=== PATIENT | female | born 1945 | race Caucasian/White ===

== ENCOUNTER 2020-02-28 06:39 | Observation (INO) ==
[2020-02-28] MEDS ORDERED: Naloxone 0.4 MG/ML INJ IVP PRN (12:24)
[2020-02-28] MEDS ORDERED: Perflutren Lipid Microsphere 1.3 ML in 0.9 % Sodium Chloride 8.7 ML IVP PRN (13:43)
[2020-02-28 13:56] LABS: Basophils # 0.1 K/mcL (0.0-0.2); Basophils % 0.8 %; Eosinophils # 0.1 K/mcL (0.0-0.6); Eosinophils % 2.2 %; Hemoglobin 13.8 g/dL (11.5-15.4); Immature Granulocytes % 0.2 % (0-4); Lymphocytes # 2.2 K/mcL (0.6-4.6); Lymphocytes % 34.4 %; Mean Corpuscular HGB Conc 32.9 g/dL (31.6-35.5); Mean Corpuscular Hemoglobin 29.8 pg (28.0-33.3); Mean Corpuscular Volume 90.7 fL (83.0-100.0); Mean Platelet Volume 9.7 fL (9.4-12.4); Monocytes # 0.6 K/mcL (0.0-1.3); Monocytes % 8.5 %; Neutrophils # 3.5 K/mcL (1.6-8.9); Platelet Count 322 K/mcL (140-400); Red Blood Count 4.63 M/mcL (3.82-4.97); Red Cell Distribution Width 11.9 % (11.5-14.5); Segmented Neutrophils % 53.9 %; White Blood Count 6.5 K/mcL (4.3-11.1)
[2020-02-28 14:06] LABS: Prothrombin Time 11.4 Seconds (9.4-12.1)
[2020-02-28 14:27] LABS: Alanine Aminotransferase 18 Units/L (7-52); Albumin 4.5 g/dL (3.5-5.7); Albumin/Globulin Ratio 1.8 (1.1-2.2); Alkaline Phosphatase 58 Units/L (34-104); Aspartate Amino Transferase 21 Units/L (13-39); BUN/Creatinine Ratio 11 (6-26); Bilirubin,Total 0.7 mg/dL (0.3-1.0); Blood Urea Nitrogen 8 mg/dL (8-23); Calcium 9.9 mg/dL (8.6-10.3); Carbon Dioxide 25 mEq/L (23-29); Chloride 102 mEq/L (98-107); Chol/HDL Ratio 2.4 (0-4.9); Cholesterol 179 mg/dL (< 200); Globulin 2.5 g/dL (2.4-3.5); Glucose 104 mg/dL (70-105); HDL Cholesterol 76 mg/dL (40-59); LDL Cholesterol,Calculated 89 mg/dL (< 100); Magnesium 2.2 mg/dL (1.6-2.6); Osmolality,Calculated 279 (280-300); Phosphorous 3.6 mg/dL (2.7-4.5); Potassium 3.9 mEq/L (3.5-5.1); Sodium 135 mEq/L (136-145); Triglycerides 71 mg/dL (< 150); Troponin I < 0.03 ng/mL (< 0.04); eGFR For African Americans > 60 (> 60); eGFR For Non-African Americans > 60 (> 60)
[2020-02-28 15:34] LABS: Estimated Average Glucose 126 mg/dl
[2020-02-28] MEDS: lisinopriL 10 MG TABLET PO SCH (16:42)
[2020-02-28] MEDS: *HR* Heparin 5,000 UNIT/ML VIAL SQ SCH (18:38)
[2020-02-29] MEDS: *HR* Heparin 5,000 UNIT/ML VIAL SQ SCH (05:58)
[2020-02-29] MEDS ORDERED: Aspirin 81 MG TAB.CHEW PO SCH (09:00)
[2020-02-29] MEDS ORDERED: amLODIPine 5 MG TABLET PO SCH (09:00)
[2020-02-29] MEDS: lisinopriL 10 MG TABLET PO SCH (09:12)
[2020-02-29 10:51] VITALS: BP 130/72
== END 2020-02-29 14:43 | disposition home or self-care (01) ==
LOC: 3BNU → SUATTDRO 12:24
PROVIDERS: ADMIT Internal Medicine; ATTEND Internal Medicine